=== PATIENT | female | born 1960 ===

== ENCOUNTER 2022-12-08 06:00 | Outpatient (RCR) | payer BC, SELFPAY | END 2022-12-19 23:59 | disposition home or self-care (01) | LOC: GPT 06:00 | PROVIDERS: Visit Provider Nurse Practitioner Family | DX: Z74.09 Other reduced mobility (principal) | CPT/HCPCS: 97110; 97112; 97163; 97530; 97535 ==

== ENCOUNTER 2022-12-20 01:00 | Outpatient (RCR) | payer BC, SELFPAY | END 2023-01-18 23:59 | disposition home or self-care (01) | LOC: GPT 01:00 | PROVIDERS: Visit Provider Nurse Practitioner Family | DX: Z74.09 Other reduced mobility (principal) | CPT/HCPCS: 97110; 97530; 97535 ==